=== PATIENT | female | born 1960 | race Caucasian/White ===

== ENCOUNTER → 2023-04-03 23:00 | Outpatient (CLI) | payer MEDICARE, SELFPAY | PROVIDERS: PCP Family Medicine; Visit Provider Student in an Organized Health Care Education/Training Program | DX: R50.9 Fever, unspecified (principal); J02.9 Acute pharyngitis, unspecified | CPT/HCPCS: 87070; 87635 ==

== ENCOUNTER → 2024-01-14 09:00 | Outpatient (RCR) | payer MEDICARE, SELFPAY | LOC: OT 01-01 10:53 | PROVIDERS: Visit Provider Family Medicine | DX: M25.511 Pain in right shoulder (principal) | CPT/HCPCS: 97014; 97110; 97140; 97165; G0283 ==